=== PATIENT | male | born 1945 | race Caucasian/White ===

== ENCOUNTER 2017-10-22 02:28 | Observation (INO) | payer MEDICARE, OTHER ==
[2017-10-22] MEDS: SOD CHLORIDE 0.9% 500 ML IV (03:34)
[2017-10-22 03:40] LABS: ADD MAN DIFF? NO
[2017-10-22 03:51] LABS: WHITE BLOOD COUNT 9.3 10^3/ul (4.8-10.8)
[2017-10-22 03:51] LABS: BASOPHILS % 0.2 % (0.0-2.0); EOSINOPHILS % 0.4 % (0.0-7.0); HEMATOCRIT 43.5 % (42.0-52.0); LYMPHOCYTES # 0.9 10^3/ul (0.8-2.9); LYMPHOCYTES % 9.4 % (15.0-51.0); MEAN CORPUSCULAR HEMOGLOBIN 29.9 pg (29.0-33.0); MEAN CORPUSCULAR HGB CONC 32.2 g/dl (32.0-37.0); MEAN CORPUSCULAR VOLUME 92.8 fl (82.0-101.0); MEAN PLATELET VOLUME 9.7 fl (7.4-10.4); MONOCYTE # 0.7 10^3/ul (0.3-0.9); MONOCYTES % 7.3 % (0.0-11.0); NEUTROPHIL # 7.7 10^3/ul (1.6-7.5); PLATELET COUNT 355 10^3/UL (140-415); RED BLOOD COUNT 4.69 10^6/ul (4.70-6.10); RED CELL DISTRIBUTION WIDTH 14.3 % (11.5-14.5)
[2017-10-22 04:05] LABS: LACTIC ACID 1.4 mmol/L (0.5-2.0)
[2017-10-22 04:07] LABS: ALANINE AMINOTRANSFERASE 20 IU/L (13-69); ALBUMIN 3.7 g/dl (3.3-4.9); ALBUMIN/GLOBULIN RATIO 1.19; ALKALINE PHOSPHATASE 105 IU/L (42-121); ANION GAP 14 (8-16); ASPARTATE AMINO TRANSFERASE 18 IU/L (15-46); BILIRUBIN,INDIRECT 0.7 mg/dl (0-1.1); BILIRUBIN,TOTAL 0.7 mg/dl (0.2-1.3); BLOOD UREA NITROGEN 19 mg/dl (7-20); CALCIUM 9.2 mg/dl (8.4-10.2); CARBON DIOXIDE 29 mmol/L (21-31); CHLORIDE 103 mmol/L (97-110); CREATININE 0.67 mg/dl (0.61-1.24); GLUCOSE 156 mg/dl (70-220); POTASSIUM 4.2 mmol/L (3.5-5.1); SODIUM 142 mmol/L (135-144); TOTAL PROTEIN 6.8 g/dl (6.1-8.1)
[2017-10-22 04:10] LABS: ACETAMINOPHEN < 10.0 ug/ml (10.0-30.0); ETHANOL < 10.0 mg/dl; SALICYLATE < 1.0 mg/dl (5.0-30.0)
[2017-10-22 04:17] LABS: TROPONIN-I < 0.010 ng/ml (0.000-0.120)
[2017-10-22 04:19] LABS: AMMONIA < 9 umol/l (9-30)
[2017-10-22 04:48] LABS: ADD UMIC NO; UR ASCORBIC ACID NEGATIVE (NEGATIVE); UR BILIRUBIN (Dip) NEGATIVE (NEGATIVE); UR BLOOD (Dip) NEGATIVE (NEGATIVE); UR CLARITY CLEAR (CLEAR); UR COLOR AMBER (YELLOW); UR GLUCOSE (Dip) NEGATIVE (NEGATIVE); UR KETONES (Dip) NEGATIVE (NEGATIVE); UR LEUKOCYTE ESTERASE (Dip) NEGATIVE Leu/ul (NEGATIVE); UR NITRITE (Dip) NEGATIVE (NEGATIVE); UR SPECIFIC GRAVITY (Dip) 1.026 (1.003-1.030); UR TOTAL PROTEIN (Dip) NEGATIVE (NEGATIVE); UR UROBILINOGEN (Dip) 2+ mg/dL (NEGATIVE)
[2017-10-22] MEDS ORDERED: NACL 0.9% 3 ML SYG IV (05:00)
[2017-10-22] MEDS ORDERED: ACETAMINOPHEN 325 MG TAB PO (05:00)
[2017-10-22 05:04] LABS: AMPHETAMINE/METHAMPHETAMINE Negative (NEGATIVE); BARBITURATES Negative (NEGATIVE); BENZODIAZEPINES Negative (NEGATIVE); CANNABINOIDS Negative (NEGATIVE); COCAINE Negative (NEGATIVE); OPIATES Negative (NEGATIVE)
[2017-10-22 08:29] LABS: LACTIC ACID 1.3 mmol/L (0.5-2.0)
[2017-10-23 08:32] LABS: ADD MAN DIFF? NO
[2017-10-23 08:35] LABS: BASOPHILS % 0.1 % (0.0-2.0); EOSINOPHILS % 0.3 % (0.0-7.0); HEMATOCRIT 40.8 % (42.0-52.0); LYMPHOCYTES % 8.9 % (15.0-51.0); MEAN CORPUSCULAR HEMOGLOBIN 29.3 pg (29.0-33.0); MEAN CORPUSCULAR HGB CONC 31.9 g/dl (32.0-37.0); MEAN CORPUSCULAR VOLUME 91.9 fl (82.0-101.0); MEAN PLATELET VOLUME 9.9 fl (7.4-10.4); MONOCYTE # 0.8 10^3/ul (0.3-0.9); MONOCYTES % 7.4 % (0.0-11.0); NEUTROPHIL # 9.1 10^3/ul (1.6-7.5); NEUTROPHILS % 82.7 % (39.0-77.0); PLATELET COUNT 337 10^3/UL (140-415); RED BLOOD COUNT 4.44 10^6/ul (4.70-6.10)
[2017-10-23 08:54] LABS: HEMOGLOBIN A1C 6.7 % (0-5.9)
[2017-10-23 09:05] LABS: ALANINE AMINOTRANSFERASE 23 IU/L (13-69); ALBUMIN 3.1 g/dl (3.3-4.9); ALKALINE PHOSPHATASE 93 IU/L (42-121); ANION GAP 12 (8-16); ASPARTATE AMINO TRANSFERASE 15 IU/L (15-46); BILIRUBIN,INDIRECT 0.4 mg/dl (0-1.1); BILIRUBIN,TOTAL 0.4 mg/dl (0.2-1.3); BLOOD UREA NITROGEN 16 mg/dl (7-20); CALCIUM 8.7 mg/dl (8.4-10.2); CARBON DIOXIDE 28 mmol/L (21-31); CHLORIDE 102 mmol/L (97-110); CHOL/HDL RATIO 4.3 RATIO; CHOLESTEROL 127 mg/dl (100-200); CREATININE 0.46 mg/dl (0.61-1.24); GLUCOSE 119 mg/dl (70-220); HDL CHOLESTEROL 29 mg/dl (31-75); LDL CHOLESTEROL,CALCULATED 79 mg/dl; MAGNESIUM 1.9 mg/dl (1.7-2.5); POTASSIUM 3.1 mmol/L (3.5-5.1); SODIUM 139 mmol/L (135-144); TOTAL PROTEIN 5.9 g/dl (6.1-8.1); TRIGLYCERIDES 94 mg/dl (0-149)
[2017-10-23 09:29] LABS: THYROID STIMULATING HORMONE 0.166 MIU/L (0.465-4.680)
[2017-10-23] MEDS: POTASSIUM CHLORIDE 20 MEQ POWDER FOR ORAL SOLN PO (14:00)
[2017-10-23] MEDS ORDERED: IOHEXOL 10 MG(I)/ML (PED) BTL PO (14:30)
[2017-10-23] MEDS ORDERED: BARIUM SULF 2% 450 ML BTL (BERRY SMOOTHIE) PO (14:30)
[2017-10-23] MEDS ORDERED: IOHEXOL 14.3 MG(I)/ML (ADULT) BTL PO (16:30)
[2017-10-23] MEDS: IOHEXOL 300MG/ML 150 ML BTL (18:24)
[2017-10-23] MEDS: SOD CHLORIDE 0.9% 100 ML (18:24)
[2017-10-24 06:45] LABS: ADD MAN DIFF? NO
[2017-10-24 06:52] LABS: WHITE BLOOD COUNT 10.3 10^3/ul (4.8-10.8)
[2017-10-24 06:52] LABS: BASOPHILS % 0.2 % (0.0-2.0); EOSINOPHILS % 0.3 % (0.0-7.0); HEMOGLOBIN 12.2 g/dl (14.0-18.0); LYMPHOCYTES # 1.2 10^3/ul (0.8-2.9); LYMPHOCYTES % 11.2 % (15.0-51.0); MEAN CORPUSCULAR HEMOGLOBIN 29.4 pg (29.0-33.0); MEAN CORPUSCULAR HGB CONC 32.1 g/dl (32.0-37.0); MEAN CORPUSCULAR VOLUME 91.6 fl (82.0-101.0); MEAN PLATELET VOLUME 9.9 fl (7.4-10.4); MONOCYTE # 0.9 10^3/ul (0.3-0.9); MONOCYTES % 8.2 % (0.0-11.0); NEUTROPHIL # 8.2 10^3/ul (1.6-7.5); NEUTROPHILS % 79.4 % (39.0-77.0); PLATELET COUNT 344 10^3/UL (140-415); RED BLOOD COUNT 4.15 10^6/ul (4.70-6.10)
[2017-10-24 07:16] LABS: ANION GAP 11 (8-16); BLOOD UREA NITROGEN 18 mg/dl (7-20); CALCIUM 8.6 mg/dl (8.4-10.2); CARBON DIOXIDE 28 mmol/L (21-31); CHLORIDE 101 mmol/L (97-110); CREATININE 0.56 mg/dl (0.61-1.24); GLUCOSE 107 mg/dl (70-220); MAGNESIUM 1.9 mg/dl (1.7-2.5); POTASSIUM 3.6 mmol/L (3.5-5.1); SODIUM 136 mmol/L (135-144)
[2017-10-24] MEDS: PIPER-TAZO 3.375 GM IV (PMX) 100 ML IVPB (09:00)
[2017-10-24 13:43] LABS: FREE THYROXINE INDEX (Calc) 2.53 ug/ml (0.65-3.89); T3 UPTAKE 44.4 % (23.5-40.5); T4 (THYROXINE) 5.7 ug/dl (5.5-11.0)
[2017-10-24 13:56] LABS: THYROID STIMULATING HORMONE 0.298 MIU/L (0.465-4.680)
[2017-10-24] MEDS ORDERED: NICOTINE POLACRILEX 4 MG GUM BUCCAL (15:00)
[2017-10-24] MEDS: NICOTINE (21 MG/24 HR) PATCH TRANSDERM (17:08)
[2017-10-24 17:10] LABS: PROTIME 14.4 Sec (11.9-14.9); PT RATIO 1.1
[2017-10-24 17:11] LABS: PARTIAL THROMBOPLASTIN TIME 31.5 Sec (25.0-35.0)
[2017-10-24 17:14] LABS: CARCINOEMBRYONIC ANTIGEN 10.6 ng/ml (0.0-5.0)
== END 2017-10-24 19:19 | disposition home or self-care (01) ==
LOC: TEL 10-24 01:28 → E/R 02:28 → ICU 04:08 → TEL 21:36
DX: G93.40 Encephalopathy, unspecified (principal); J98.4 Other disorders of lung; R73.03 Prediabetes; J43.9 Emphysema, unspecified; E87.6 Hypokalemia; Z77.22 Contact with and (suspected) exposure to environmental tobacco smoke (acute) (chronic); E78.6 Lipoprotein deficiency
CPT/HCPCS: 36415; 70450; 70553; 71045; 71260; 74177; 80048; 80053; 80061; 80307; 81003; 82140; 82378; 83036; 83605; 83735; 84100; 84436; 84443; 84479; 84484; 85025; 85610; 85730; 87081; 93005; 97161; 99217; 99285-25